=== PATIENT | female | born 1980 | race African-American/Black ===

== ENCOUNTER → 2024-08-21 | Outpatient (CLI) | payer OTHER ==
--- NOTE | 2024-08-21 13:51 | HMCIMG ---
Exam Type: US VENOUS DOPPLER BILATERAL Clinical Information: other specified soft tissue disorders Comparison: None Findings: The examination shows normal deep venous system. There is normal compressibility at all levels. There is no intraluminal clot. There is no occlusion. Adequate response is obtained on augmentation. Impression: No evidence of DVT.
--- NOTE | 2024-08-21 14:09 | HMCIMG ---
Exam Type: US ARTERIAL BILAT LOW EXT DUPL Clinical Information: other specified soft tissue disorders Comparison: None Findings: Diffuse bilateral plaque is identified. There are normal triphasic waveforms of the bilateral common femoral artery through the popliteal artery and bilateral posterior tibial artery. There are biphasic waveforms of the bilateral anterior tibial artery and dorsalis pedis artery consistent with moderate nonocclusive hemodynamically significant disease. IMPRESSION: Peripheral vascular disease as noted.
== END | disposition home or self-care (01) ==
LOC: RAH 12:17
PROVIDERS: ATTEND Internal Medicine
DX: M79.89 Other specified soft tissue disorders (principal); R22.41 Localized swelling, mass and lump, right lower limb; I73.9 Peripheral vascular disease, unspecified
CPT/HCPCS: 93925; 93970